=== PATIENT | male | born 1995 | race Caucasian/White ===

== ENCOUNTER 2019-09-12 08:52 | Emergency (ER) | payer SELFPAY ==
[2019-09-12] MEDS ORDERED: NS 0.9% 1000 ML** 2,000 ML IV ONE (09:02)
[2019-09-12 09:35] LABS: ABS Monocytes 0.4 10^3/ul (0-0.8); ABS Neutrophils 3.9 10^3/ul (1.5-7.7); Eosinophil % 0.5 %; Hematocrit 45 % (42-52); Hemoglobin 15.6 g/dL (14.0-18.0); Lymphocyte % 18.4 %; Mean Corpuscular HGB Conc 35 g/dL (31-36); Mean Corpuscular Hemoglobin 32 pg (27-31); Mean Corpuscular Volume 90 fL (80-94); Mean Platelet Volume 9.4 fL (7.4-10.4); Nucleated Red Blood Cells % 0.1; Platelet Count 202 10^3/uL (150-450); Red Blood Count 4.96 10^6 /uL (4.18-5.48); Red Cell Distribution Width 13 % (10-15); White Blood Count 5.3 10^3/uL (3.5-10.8)
[2019-09-12 09:50] LABS: ALT 25 U/L (7-52); AST 18 U/L (13-39); Albumin 4.5 g/dL (3.2-5.2); Albumin/Globulin Ratio 1.7 (1-3); Alkaline Phosphatase 79 U/L (34-104); Anion Gap 11 mmol/L (2-11); BUN/Creatinine Ratio 15.7 (8-20); Blood Urea Nitrogen 16 mg/dL (6-24); CO2 Carbon Dioxide 23 mmol/L (22-32); Calcium 9.4 mg/dL (8.6-10.3); Chloride 102 mmol/L (101-111); EGFR African American 108.6 (>60); EGFR Non-African American 89.7 (>60); Globulin 2.7 g/dL (2-4); Glucose 187 mg/dL (70-100); Magnesium 1.5 mg/dL (1.9-2.7); Potassium 3.3 mmol/L (3.5-5.0); Sodium 136 mmol/L (135-145); Total Protein 7.2 g/dL (6.4-8.9)
[2019-09-12 09:54] LABS: Alcohol < 10 mg/dL (<10)
[2019-09-12 10:56] LABS: HIV 4th Generation Nonreactive (Nonreactive)
--- NOTE | 2019-09-12 11:29 | ED ---
Syncope/Near Syncope - HPI Summary HPI Summary: 24-year-old male with no significant past medical history presents emergency Department today with chief complaint of lightheadedness and dizziness. Patient states he "feels wiped out". Patient states he was at work this morning and after climbing 8 stories of stairs he felt short of breath and lightheaded and dizzy. Patient first believed he was "hung over" and then decided to come to the hospital for evaluation. Patient states over the last 3 days he has had "a lot of alcohol". Patient has no other complaints at this time and is currently asymptomatic. Patient denies fever, chest pain, abdominal pain, pain with urination, rash, nausea, vomiting, diarrhea. - History Of Current Complaint Chief Complaint: EDShortnessOfBreath Time Seen by Provider: 09/12/19 08:56 Hx Obtained From: Patient Onset/Duration: Sudden Onset Timing: Minutes Context: Unwitnessed Activity At Onset: Exertion Alleviating Factor(s): Spontaneous Resolution Associated Signs And Symptoms: Dizzy, Lightheadedness, Weakness - Allergies/Home Medications Allergies/Adverse Reactions: Allergies Allergy/AdvReac Type Severity Reaction Status Date / Time No Known Allergies Allergy Verified 09/12/19 08:58 Home Medications: Home Medications NK [No Home Medications Reported] 09/12/19 [History Confirmed 09/12/19] PMH/Surg Hx/FS Hx/Imm Hx Infectious Disease History: No Infectious Disease History: Denies: Traveled Outside the [place] in Last 30 Days - Social History Alcohol Use: Daily Alcohol Amount: 2-3 Substance Use Type: Reports: Marijuana Smoking Status (MU): Former Smoker Review of Systems Positive: Fatigue Eyes: Negative ENT: Negative Cardiovascular: Negative Positive: Shortness Of Breath. Negative: Cough Gastrointestinal: Negative Genitourinary: Negative Musculoskeletal: Negative Skin: Negative Neurological: Negative Psychological: Normal All Other Systems Reviewed And Are Negative: Yes Physical Exam Triage Information Reviewed: Yes Vital Signs On Initial Exam: Initial Vitals Temp Pulse Resp BP Pulse Ox 97.4 F 131 20 172/103 100 09/12/19 08:55 09/12/19 08:55 09/12/19 08:55 09/12/19 08:55 09/12/19 08:55 Vital Signs Reviewed: Yes Appearance: Positive: Well-Appearing, No Pain Distress, Well-Nourished Skin: Positive: Warm, Skin Color Reflects Adequate Perfusion Eyes: Positive: EOMI, MESFIN ENT: Positive: Hearing grossly normal Respiratory/Lung Sounds: Positive: Clear to Auscultation, Breath Sounds Present Cardiovascular: Positive: RRR, S1, S2 Abdomen Description: Positive: Nontender, Soft Bowel Sounds: Positive: Present Musculoskeletal: Positive: Strength/ROM Intact Neurological: Positive: Sensory/Motor Intact, Alert, Oriented to Person Place, Time, Normal Gait, Facial Symmetry, Speech Normal Psychiatric: Positive: Normal, Affect/Mood Appropriate AVPU Assessment: Alert Procedures - Sedation Patient Received Moderate/Deep Sedation with Procedure: No Diagnostics - Vital Signs Vital Signs Temp Pulse Resp BP Pulse Ox 09/12/19 09:19 117 159/92 99 09/12/19 09:18 116 99 09/12/19 08:55 97.4 F 131 20 172/103 100 - Laboratory Lab Results: Lab Results 09/12/19 09/12/19 09/12/19 Range/Units 09:20 09:20 09:20 WBC 5.3 (3.5-10.8) 10^3/uL RBC 4.96 (4.18-5.48) 10^6 /uL Hgb 15.6 (14.0-18.0) g/dL Hct 45 (42-52) % MCV 90 (80-94) fL MCH 32 H (27-31) pg MCHC 35 (31-36) g/dL RDW 13 (10-15) % Plt Count 202 (150-450) 10^3/uL MPV 9.4 (7.4-10.4) fL Neut % (Auto) 73.1 % Lymph % (Auto) 18.4 % Woodward % (Auto) 7.7 % Eos % (Auto) 0.5 % Baso % (Auto) 0.3 % Absolute Neuts (auto) 3.9 (1.5-7.7) 10^3/ul Absolute Lymphs (auto) 1.0 (1.0-4.8) 10^3/ul Absolute Monos (auto) 0.4 (0-0.8) 10^3/ul Absolute Eos (auto) 0.0 (0-0.6) 10^3/ul Absolute Basos (auto) 0.0 (0-0.2) 10^3/ul Absolute Nucleated RBC 0.0 10^3/ul Nucleated RBC % 0.1 Sodium 136 (135-145) mmol/L Potassium 3.3 L (3.5-5.0) mmol/L Chloride 102 (101-111) mmol/L Carbon Dioxide 23 (22-32) mmol/L Anion Gap 11 (2-11) mmol/L BUN 16 (6-24) mg/dL Creatinine 1.02 (0.67-1.17) mg/dL Est GFR ( Amer) 108.6 (>60) Est GFR (Non-Af Amer) 89.7 (>60) BUN/Creatinine Ratio 15.7 (8-20) Glucose 187 H (70-100) mg/dL Lactic Acid 3.2 H* (0.5-2.0) mmol/L Calcium 9.4 (8.6-10.3) mg/dL Magnesium 1.5 L (1.9-2.7) mg/dL Total Bilirubin 0.80 (0.2-1.0) mg/dL AST 18 (13-39) U/L ALT 25 (7-52) U/L Alkaline Phosphatase 79 (34-104) U/L Troponin I 0.00 (<0.03) ng/mL Total Protein 7.2 (6.4-8.9) g/dL Albumin 4.5 (3.2-5.2) g/dL Globulin 2.7 (2-4) g/dL Albumin/Globulin Ratio 1.7 (1-3) Serum Alcohol < 10 (<10) mg/dL Result Diagrams: 09/12/19 09:20 09/12/19 09:20 Lab Statement: Any lab studies that have been ordered have been reviewed, and results considered in the medical decision making process. Course/Dx Course Of Treatment: The patient was evaluated in the emergency department today for lightheadedness and near syncope. Patient was examined, vital stable. EKG was done promptly which shows normal sinus rhythm at a rate of 88 bpm. No evidence of STEMI. No evidence of WPW or Brugada. Normal axis. Normal AL and QTc intervals. Patient was given 2 L of IV normal saline as he is thought to be dehydrated due to tachycardia and patient's history. Laboratory studies returned showing no leukocytosis and is now significant electrolyte abnormalities although the patient was mildly hypomagnesemic and hypokalemic. Lactic acid returned at 3.2 likely due to dehydration. Patient felt much better after 2 L bolus of normal saline. Patient's symptoms likely due to dehydration as they resolved after resuscitation. Patient discharged with outpatient follow-up. - Diagnoses Differential Diagnosis/HQI/PQRI: Positive: Hypovolemia, Metabolic Reaction, Seizure, Transient Ischemic Attack Provider Diagnoses: Dehydration Discharge ED - Sign-Out/Discharge Documenting (check all that apply): Patient Departure - Discharge Plan Condition: Stable Disposition: HOME Patient Education Materials: Dehydration (ED) Referrals: Care [facility] [Outside] - 3 Days No Primary Care Phys,NOPCP [Primary Care Provider] - Additional Instructions: You were seen in the emergency department today due to lightheadedness at work. Laboratory studies were done which showed evidence that this was caused by dehydration. Please increase oral intake of fluids and rest. Return to activity as tolerated. Please decrease alcohol intake as this likely caused your symptoms to occur. Please follow up with your primary care physician in 3- 5 days. Please return to the emergency department immediately if you develop any new or worsening symptoms. - Billing Disposition and Condition Condition: STABLE Disposition: Home - Attestation Statements Provider Attestation: I was available for consultation for this patient. I did not evaluate the patient, or participate in any medical decision making or disposition decisions unless I am specifically named in the chart as having consulted on the patient. If I have consulted on the patient, please see my own ED note on the patient encounter. Agata Damian MD
[2019-09-12 12:36] VITALS: BP 128/97
== END 2019-09-12 12:35 | disposition home or self-care (01) ==
LOC: ED 08:52
DX: E86.0 Dehydration (principal); Z87.891 Personal history of nicotine dependence
CPT/HCPCS: 36415; 80053; 80320; 83605; 83735; 84484; 85025; 87389; 93005; 96360; 99283; G0480